=== PATIENT | female | born 1925 | race Caucasian/White ===

== ENCOUNTER 2016-11-22 21:35 | Inpatient (IN) | payer MEDICARE, OTHER ==
--- NOTE | ~2016-11-22 | DS ---
Discharge Summary [facility] [address] [place]. [address] NAME: PATRICIO NG : [birth year] STATUS : DIS IN PAT#: [id number] AGE: 89 ADM/REG DATE : 11/23/16 MR#: [id number] REPORT SERV DATE: 12/10/16 DICTATED BY: LEANNA CARRANZA DATE: 12/07/16 REPORT STATUS : Draft TRANSCRIBED BY: KRISTI DATE: 12/07/16 Data Collection from hospitalization DISCHARGE DIAGNOSES: 1. Right pubic ramus and sacral fracture. 2. Right acetabular fracture. 3. Right distal radius fracture. 4. Hypertension. 5. Hypothyroidism. 6. Hyperlipidemia. 7. Dementia. 8. Urinary tract infection. 9. Anemia. 10.Gastroesophageal reflux disease. CONSULTATIONS: Allan Horner M.D. PROCEDURES: CT scan of the pelvis without contrast, 11/22/2016. DISCHARGE MEDICATIONS: Aspirin 81 mg every morning, Rocephin 1 g IV as instructed, Benadryl 25 mg at 11 a.m. as instructed, Lasix 20 mg every 48 hours, Synthroid 50 mcg every morning, Namenda 5 mg twice a day as instructed, Paxil 10 mg every morning, Klor-Con 10 mEq every 48 hours, Seroquel 25 mg every evening, Zocor 20 mg every evening, Tylenol caplet 500 mg every four hours as needed, Benadryl 25 mg every six hours as needed, [place] 5/325 one tablet every four hours as needed, Ultram 50 mg every eight hours as needed. CONDITION ON DISCHARGE: Stable. DISPOSITION: The patient was discharged to [facility] on a regular diet with activities as instructed. She would follow up with me two weeks following discharge. HOSPITAL COURSE: This is an 89-year-old female, who fell on the day prior to this admission and complained of pain in the right wrist and hip. She was found to have a nondisplaced distal radius fracture in the emergency room and was placed in the splint. She also was found to have superior and inferior rami fractures. She was admitted to the hospital at this time for further evaluation and treatment. Upon admission, she was seen by Dr. Allan Horner. X-rays had shown a nondisplaced distal radius fracture. She had been placed in a splint. He recommended conservative management at this point. She would be allowed to use the sling as needed. She could weight bear to the forearm and the elbow, but was nonweightbearing to the hand. She would see him in the office in 7-10 days, at which time he would transition her to a short-arm cast and begin work on range of motion of the elbow and progressively with the hand. The following day, she was evaluated by Occupational and Physical Therapy. She has had a CT scan of the pelvis without contrast. On 11/25, she was in no acute distress. She was pleasantly confused. She had normal distal pulses in the bilateral lower extremities. Chest x-ray was clear. She was allowed toe-touch weightbearing as tolerated. Splint remained in place. A sling was then placed for comfort. Blood pressure was controlled. Lasix was continued as well as Discharge Summary [address] [address] NAME: PATRICIO NG : [birth year] STATUS : DIS IN PAT#: [id number] AGE: 89 ADM/REG DATE : 11/23/16 MR#: [id number] REPORT SERV DATE: 12/10/16 DICTATED BY: LEANNA CARRANZA DATE: 12/07/16 REPORT STATUS : Draft TRANSCRIBED BY: KRISTI DATE: 12/07/16 Synthroid and simvastatin. She remained on her Namenda and Seroquel for dementia. On 11/26/2016, she was doing well. There had been no acute changes. Blood pressure remained stable. A dose of IV tobramycin was given. The next day, she was up, sitting in a bedside chair. She said she had some "burning" when urinating. She had no other complaints. Discharge planning was performed. On 11/28/2016, she continued to do well. She still had confusion. Discharge instructions were given. Due to her improved and stable condition, she was discharged to [facility] with the above-stated instructions. Information collected by: Petra Pardo I submit the above information as my discharge summary. COLE/KRISTI Leanna Carranza M.D. / [id number] CC: Leanna Carranza M.D. Danie Velez M.D. Shakila Jaramillo
--- NOTE | ~2016-11-22 | CN ---
Consultation Report [facility] [address] [place]. [address] NAME: PATRICIO NG : [birth year] STATUS : ADM IN [facility]#: [id number] AGE: 89 ADM/REG DATE : 11/23/16 MR#: [id number] REPORT SERV DATE: 11/23/16 DICTATED BY: FANTA HORNER DATE: 11/23/16 REPORT STATUS : Draft TRANSCRIBED BY: MODL DATE: 11/23/16 ORTHOPEDIC HAND CONSULTATION DATE OF CONSULTATION: 11/23/2016 REASON FOR CONSULT: Right distal radius fracture. PRESENT ILLNESS: Ms. Ng is an 89-year-old female who sustained above injury as well as the superior and inferior rami fractures after a fall and was admitted to my partner, Dr. Carranza. I was asked to see her regarding her right wrist. She was diagnosed with nondisplaced distal radius fracture in the ER, placed in a splint. The patient denies any numbness or tingling. She only has mild pain. No other upper extremity complaints, although she has been elevating it. PAST MEDICAL HISTORY: Significant for anemia, GERD, hypertension, constipation, hypothyroidism, hypercholesterolemia. ALLERGIES: INCLUDE BIAXIN, CODEINE, ERYTHROMYCIN, PENICILLIN, SULFA DRUGS. PLEASE SEE THE LIST FOR ADDITIONAL. MEDICATIONS: Please see the list. REVIEW OF SYSTEMS: Negative except as above. PHYSICAL EXAMINATION: GENERAL: The patient is resting comfortably in the hospital bed. No apparent distress. EXTREMITIES: Examination of left upper extremity, no erythema, ecchymosis, swelling, or deformity. No tenderness. Full range of motion. Neurovascularly intact. Examination of the right upper extremity, shoulder and upper arm are nontender with no external signs of trauma. The lower part of the right upper extremity is in a sugar-tong splint. Distally, her fingers are protruding. She is neurovascularly intact. Has no digit tenderness and she can move them. Positive EPL function. X-RAY: X-rays show a nondisplaced distal radius fracture in a splint and STT osteoarthritis. ASSESSMENT AND PLAN: Right distal radius fracture. At this point, we would recommend conservative management. Discussed with her regarding treatment options and the preference. She understands. We will allow her to use the sling as needed. She can weight bear to the forearm and elbow, nonweightbearing to the hands and see in office in 7 to 10 days, at which time, we will transition her to a short-arm cast and begin work on range of motion of the elbow and progressively with the hands. Questions were answered to her satisfaction. Consultation Report [facility] [address] [place]. [address] NAME: PATRICIO NG : [birth year] STATUS : ADM IN PAT#: [id number] AGE: 89 ADM/REG DATE : 11/23/16 MR#: [id number] REPORT SERV DATE: 11/23/16 DICTATED BY: FANTA HORNER DATE: 11/23/16 REPORT STATUS : Draft TRANSCRIBED BY: MODErik DATE: 11/23/16 SANDRA/KRISTI Fanta Horner M.D. / [id number] CC: Shakila Fish M.D.
[~2016-11-22 21:35] MED LIST: ASAB PO; LEVOTHROID75 MCG PO; LEVOTHYROXIN75 MCG PO; LIQUID TEARS OPH; NORV25 PO; VITAMIN B OTC PO; VITAMIN E OTC PO; ZOCOR20 PO
[2016-11-22 22:10] LABS: BASOPHILS 0.3 %; BASOPHILS ABSOLUTE 0.03 10/3/uL (0.0-0.16); EOSINOPHILS 2.2 %; EOSINOPHILS ABSOLUTE 0.21 10/3/uL (0.0-0.53); ER CBC TAT 0 Hrs 09 Mins; HEMATOCRIT 36.6 % (36.0-48.0); HEMOGLOBIN 12.9 g/dL (12.0-16.0); IMMATURE GRANULOCYTES ABSOLUTE 0.09 10/3/uL (0.0-0.11); LYMPHOCYTES 18.9 %; LYMPHOCYTES ABSOLUTE 1.77 10/3/uL (0.67-4.30); MEAN CORPUSCULAR HEMOGLOB 34.1 pg (26.0-34.0); MEAN CORPUSCULAR VOLUME 96.8 fL (80-100); MEAN PLATELET VOLUME 10.5 fL (9.2-13.0); MONOCYTES 7.2 %; MONOCYTES ABSOLUTE 0.67 10/3/uL (0.21-1.20); NEUTROPHILS 70.4 %; PLATELET COUNT 193 10/3/uL (150-400); RBC DISTRIBUTION WIDTH 12.5 % (12.0-16.0); RED CELL COUNT 3.78 10/6/uL (4.0-5.6); WHITE BLOOD CELLS 9.4 10/3/uL (4.5-10.5)
[2016-11-22 22:11] LABS: MANUAL DIFF NO %; MEAN CORPUS HGB CONC 35.2 g/dL (32.0-36.0)
[2016-11-22 22:20] LABS: INTERNATIONAL NORMAL RATI 1.1 UNITS (-); PARTIAL THROMBO TIME 28.6 SEC (22.5-37.2)
[2016-11-22 22:21] LABS: PROTIME (NOT ORD) 14.1 SEC (12.0-14.5)
[2016-11-22 22:23] LABS: BUN (BLOOD UREA NITROGEN) 23 MG/DL (6-23); CALCIUM, SERUM 8.6 MG/DL (8.5-10.4); CHLORIDE, SERUM 103 MMOL/L (96-112); CO2 (CARBON DIOXIDE) 33 MMOL/L (24-34); CREATININE 1.23 MG/DL (0.55-1.02); GFR AFRICAN AMERICAN 45 ML/MIN (>=60); GFR NON AFRICAN AMERICAN 39 ML/MIN (>=60); GLUCOSE, SERUM 86 MG/DL (60-99); POTASSIUM, SERUM 4.4 MMOL/L (3.5-5.3); SODIUM, SERUM 140 MMOL/L (135-148)
[2016-11-22] MEDS ORDERED: ACET500CAP PO (23:08)
[2016-11-22] MEDS ORDERED: SYN.05 PO (23:09)
[2016-11-22] MEDS ORDERED: ASAB PO (23:09)
[2016-11-22] MEDS ORDERED: ZOCOR20 PO (23:10)
[2016-11-22] MEDS ORDERED: KLOR-CON 1010 MEQ PO (23:10)
[2016-11-22] MEDS ORDERED: L20 PO (23:10)
[2016-11-22] MEDS ORDERED: PAX10 PO (23:10)
[2016-11-22] MEDS ORDERED: NAMENDA5 PO (23:11)
[2016-11-22] MEDS ORDERED: SEROQUEL25 PO (23:11)
[2016-11-26 05:17] LABS: INTERNATIONAL NORMAL RATI 1.1 UNITS (-); PROTIME (NOT ORD) 14.5 SEC (12.0-14.5)
[2016-11-26 09:03] LABS: ASCORBIC ACID (UR NOT ORDER) NEG (NEG); BILIRUBIN, URINE NEGATIVE (NEG); KETONE, URINE NEGATIVE (NEG); LEUKOCYTE ESTERASE(NOT OR LARGE (NEG)
[2016-11-26 09:04] LABS: WBC (NOT ORDERED) (RFLEX) > 182 (0-5)
[2016-11-26 20:50] LABS: ASCORBIC ACID (UR NOT ORDER) NEG (NEG); BILIRUBIN, URINE NEGATIVE (NEG); KETONE, URINE NEGATIVE (NEG); LEUKOCYTE ESTERASE(NOT OR LARGE (NEG)
[2016-11-26 20:51] LABS: WBC (NOT ORDERED) (RFLEX) > 182 (0-5)
[2016-11-27 04:53] LABS: BASOPHILS 0.3 %; BASOPHILS ABSOLUTE 0.03 10/3/uL (0.0-0.16); EOSINOPHILS 2.9 %; EOSINOPHILS ABSOLUTE 0.34 10/3/uL (0.0-0.53); HEMOGLOBIN 11.5 g/dL (12.0-16.0); IMMATURE GRANULOCYTES 0.3 %; IMMATURE GRANULOCYTES ABSOLUTE 0.03 10/3/uL (0.0-0.11); LYMPHOCYTES 11.2 %; LYMPHOCYTES ABSOLUTE 1.33 10/3/uL (0.67-4.30); MEAN CORPUSCULAR HEMOGLOB 33.4 pg (26.0-34.0); MEAN CORPUSCULAR VOLUME 95.6 fL (80-100); MEAN PLATELET VOLUME 9.8 fL (9.2-13.0); MONOCYTES 10.1 %; NEUTROPHILS 75.2 %; NEUTROPHILS ABSOLUTE 8.96 10/3/uL (2.02-8.40); PLATELET COUNT 170 10/3/uL (150-400); RED CELL COUNT 3.44 10/6/uL (4.0-5.6); WHITE BLOOD CELLS 11.9 10/3/uL (4.5-10.5)
[2016-11-27 04:54] LABS: HEMATOCRIT 32.9 % (36.0-48.0)
[2016-11-27 04:55] LABS: MANUAL DIFF NO %
[2016-11-27 05:06] LABS: BUN (BLOOD UREA NITROGEN) 20 MG/DL (6-23); CALCIUM, SERUM 8.7 MG/DL (8.5-10.4); CHLORIDE, SERUM 103 MMOL/L (96-112); GFR AFRICAN AMERICAN 76 ML/MIN (>=60); GFR NON AFRICAN AMERICAN 65 ML/MIN (>=60); GLUCOSE, SERUM 102 MG/DL (60-99); SODIUM, SERUM 138 MMOL/L (135-148)
[2016-11-27 05:10] LABS: CO2 (CARBON DIOXIDE) 27 MMOL/L (24-34)
[2016-11-28 05:42] LABS: BASOPHILS 0.5 %; BASOPHILS ABSOLUTE 0.05 10/3/uL (0.0-0.16); EOSINOPHILS ABSOLUTE 0.38 10/3/uL (0.0-0.53); HEMATOCRIT 30.1 % (36.0-48.0); HEMOGLOBIN 10.4 g/dL (12.0-16.0); IMMATURE GRANULOCYTES 0.3 %; IMMATURE GRANULOCYTES ABSOLUTE 0.03 10/3/uL (0.0-0.11); LYMPHOCYTES 19.3 %; LYMPHOCYTES ABSOLUTE 1.82 10/3/uL (0.67-4.30); MEAN CORPUS HGB CONC 34.6 g/dL (32.0-36.0); MEAN CORPUSCULAR HEMOGLOB 33.5 pg (26.0-34.0); MEAN CORPUSCULAR VOLUME 97.1 fL (80-100); MEAN PLATELET VOLUME 9.7 fL (9.2-13.0); MONOCYTES 11.5 %; MONOCYTES ABSOLUTE 1.08 10/3/uL (0.21-1.20); NEUTROPHILS 64.4 %; NEUTROPHILS ABSOLUTE 6.07 10/3/uL (2.02-8.40); PLATELET COUNT 166 10/3/uL (150-400); RBC DISTRIBUTION WIDTH 12.4 % (12.0-16.0); WHITE BLOOD CELLS 9.4 10/3/uL (4.5-10.5)
[2016-11-28 05:43] LABS: MANUAL DIFF NO %
[2016-11-28 05:55] LABS: CALCIUM, SERUM 8.6 MG/DL (8.5-10.4); CHLORIDE, SERUM 103 MMOL/L (96-112); CO2 (CARBON DIOXIDE) 28 MMOL/L (24-34); CREATININE 0.97 MG/DL (0.55-1.02); GFR AFRICAN AMERICAN 60 ML/MIN (>=60); GFR NON AFRICAN AMERICAN 52 ML/MIN (>=60); GLUCOSE, SERUM 97 MG/DL (60-99); SODIUM, SERUM 139 MMOL/L (135-148)
[2016-11-28 05:58] LABS: BUN (BLOOD UREA NITROGEN) 28 MG/DL (6-23)
[2017-04-30] MEDS ORDERED: VITAMIN D31000 UNIT PO (16:42)
[2017-04-30] MEDS ORDERED: MACRODANTIN 10100 MG PO (16:44)
[2017-04-30] MEDS ORDERED: ULTRAM50 PO (16:46)
[2017-04-30] MEDS ORDERED: IMOD PO (16:47)
[2017-04-30] MEDS ORDERED: NORCO1 TA1 PO (16:47)
[2017-04-30] MEDS ORDERED: L20 PO (16:48)
[2017-04-30] MEDS ORDERED: KLOR-CON 1010 MEQ PO (16:49)
== END 2016-11-28 14:47 | DRG 551 ==
LOC: ER 21:35 → 3JRC 11-23 02:30
PROVIDERS: Hospitalist; Orthopaedic Surgery
DX: S32.10XA Unspecified fracture of sacrum, initial encounter for closed fracture (principal); S32.401A Unspecified fracture of right acetabulum, initial encounter for closed fracture; F03.90 Unspecified dementia, unspecified severity, without behavioral disturbance, psychotic disturbance, mood disturbance, and anxiety; S32.491A Other specified fracture of right acetabulum, initial encounter for closed fracture; S52.501A Unspecified fracture of the lower end of right radius, initial encounter for closed fracture; S32.591A Other specified fracture of right pubis, initial encounter for closed fracture; N39.0 Urinary tract infection, site not specified; K21.9 Gastro-esophageal reflux disease without esophagitis; E78.00 Pure hypercholesterolemia, unspecified; K59.00 Constipation, unspecified; Z88.5 Allergy status to narcotic agent; Z88.1 Allergy status to other antibiotic agents; Z88.0 Allergy status to penicillin; Z88.2 Allergy status to sulfonamides; Z79.899 Other long term (current) drug therapy; W19.XXXA Unspecified fall, initial encounter; M19.90 Unspecified osteoarthritis, unspecified site; E78.5 Hyperlipidemia, unspecified; Z87.440 Personal history of urinary (tract) infections
CPT/HCPCS: 71010; 72192; 73110-RT; 73502-RT; 80048; 81001; 85025; 85610; 85730; 87077; 87086; 87186; 93005; 96374; 96375; 97110-GP; 97162-GP; 97166-GO; 97530-GP; 97535-GO; 99285; A9270-GY; G8978-CL-GP; G8979-CK-GP; J2405; J3260